=== PATIENT | female | born 1945 | race African-American/Black ===

== ENCOUNTER 2016-12-13 17:04 | Inpatient (IN) | payer MEDICARE, MEDICAID ==
[~2016-12-13] VITALS: Ht 165.1 cm; Wt 64.9 kg
[~2016-12-13 17:04] MED LIST: ALBU90AE IH; ASPI-1159 PO; ATOR10TA PO; BECL8.7A6 IH; COR3 PO; FOLI-43 PO; FURO20TA4 PO; LOSA25TA3 PO; TRAV2.5D LEFTEYE
[2016-12-13 20:08] LABS: BASOPHILS % 0.8 % (0.0-2.0); EOSINOPHILS % 2.6 % (0.0-5.0); HEMATOCRIT. 33.3 % (36.0-48.0); HEMOGLOBIN. 10.9 g/dL (12.0-16.0); LYMPHOCYTES % 30.4 % (20.0-50.0); MEAN CORPUSCULAR HEMOGLOBIN 27.8 pg (28.0-32.0); MEAN CORPUSCULAR VOLUME 84.9 fL (81.0-99.0); MEAN PLATELET VOLUME 10.4 fl (7.4-10.4); MONOCYTES % 11.9 % (2.0-8.0); NEUTROPHILS % 54.3 % (40.0-76.0); PLATELET 116 x1000/uL (130-400); RED BLOOD CELL COUNT 3.93 mill/uL (4.2-5.4); RED CELL DISTRIBUTION WIDTH 16.4 % (11.6-14.6)
[2016-12-13 20:15] LABS: INR 1.1; PARTIAL THROMBOPLASTIN TIME 26.9 sec (23.4-31.0); PROTHROMBIN TIME 11.4 sec (9.4-11.6)
[2016-12-13 20:24] LABS: CARBON DIOXIDE 24 mEq/L (21-32); CHLORIDE 105 mEq/L (98-107)
[2016-12-13] MEDS ORDERED: ZOLPIDEM TARTRATE 5MG TABLET PO PRN (21:00)
[2016-12-13] MEDS ORDERED: ACETAMINOPHEN 325MG TABLET PO PRN (22:15)
[2016-12-13] MEDS ORDERED: ONDANSETRON HCL 4MG/2ML VIAL IV PRN (22:15)
[2016-12-13] MEDS ORDERED: IPRATROPIUM/ALBUTEROL 0.5-3(2.5)MG/3ML NEB INH PRN (22:15)
[2016-12-13] MEDS ORDERED: FUROSEMIDE 40MG/4ML VIAL IVP SCH (22:15)
[2016-12-14 04:00] VITALS: BP 118/64
[2016-12-14] MEDS: MORPHINE SULFATE 4 MG/ML CPJ (NOT FOR IM USE) IV PRN (04:26)
[2016-12-14 04:30] VITALS: BP 112/64
[2016-12-14] MEDS: OMEPRAZOLE 20MG CAPSULE EXTENDED RELEASE PO SCH (06:11)
[2016-12-14 07:13] LABS: CLARITY URINE CLOUDY (CLEAR); COLOR URINE YELLOW (YELLOW); GLUCOSE URINE NEGATIVE (NEGATIVE); KETONES URINE NEGATIVE (NEGATIVE); LEUKOCYTE ESTERASE URINE 2+ (NEGATIVE); NITRITE URINE NEGATIVE (NEGATIVE); OCCULT BLOOD URINE 1+ (NEGATIVE); PH URINE 5.5 (4.5-8.0); PROTEIN URINE 1+ (NEGATIVE); SPECIFIC GRAVITY URINE 1.017 (1.005-1.030); UROBILINOGEN URINE 0.2 E.U./dL (0.2-1.0)
[2016-12-14 07:30] LABS: *AMPHETAMINES SCREEN URINE NEGATIVE (NEGATIVE); *BARBITURATES SCREEN URINE NEGATIVE (NEGATIVE); *BENZODIAZEPINES SCREEN URINE NEGATIVE (NEGATIVE); *COCAINE SCREEN URINE NEGATIVE (NEGATIVE); CANNABINOID URINE SCREEN NEGATIVE (NEGATIVE); METHADONE URINE SCREEN NEGATIVE (NEGATIVE); OPIATES URINE SCREEN NEGATIVE (NEGATIVE); PHENCYCLIDINE URINE SCREEN NEGATIVE (NEGATIVE)
[2016-12-14 08:00] VITALS: BP 106/75
[2016-12-14] MEDS: ASPIRIN 81MG EC TABLET PO SCH (08:54)
[2016-12-14] MEDS: ENOXAPARIN 30MG/0.3ML SYR SUBCUT SCH (08:56)
[2016-12-14] MEDS ORDERED: FUROSEMIDE 40MG/4ML VIAL IVP SCH (09:00)
[2016-12-14 09:22] LABS: BASOPHILS % 1.2 % (0.0-2.0); EOSINOPHILS % 1.1 % (0.0-5.0); HEMATOCRIT. 31.9 % (36.0-48.0); HEMOGLOBIN. 10.5 g/dL (12.0-16.0); LYMPHOCYTES % 19.4 % (20.0-50.0); MEAN CORPUSCULAR HEMOGLOBIN 28.1 pg (28.0-32.0); MEAN CORPUSCULAR VOLUME 85.2 fL (81.0-99.0); MEAN PLATELET VOLUME 10.6 fl (7.4-10.4); MONOCYTES % 10.3 % (2.0-8.0); PLATELET 112 x1000/uL (130-400); RED BLOOD CELL COUNT 3.74 mill/uL (4.2-5.4); RED CELL DISTRIBUTION WIDTH 16.3 % (11.6-14.6)
[2016-12-14 09:59] LABS: TROPONIN I 3.5 ng/mL (0.00-0.04)
[2016-12-14] MEDS: LOSARTAN POTASSIUM 25 MG TABLET PO SCH ×2 (10:45→12:24)
[2016-12-14 12:00] VITALS: BP 111/71
[2016-12-14] MEDS: CARVEDILOL 3.125 MG TABLET PO SCH ×2 (12:25→16:57)
[2016-12-14 16:00] VITALS: BP 99/69
[2016-12-14 20:00] VITALS: BP 105/67
[2016-12-14] MEDS: FUROSEMIDE 40MG/4ML VIAL IVP SCH (20:54)
[2016-12-14] MEDS: ATORVASTATIN CALCIUM 10MG TABLET PO SCH (20:54)
[2016-12-15] VITALS: BP 112/71
[2016-12-15 04:00] VITALS: BP 91/55
[2016-12-15] MEDS: OMEPRAZOLE 20MG CAPSULE EXTENDED RELEASE PO SCH (06:18)
[2016-12-15 07:09] LABS: BASOPHILS % 0.9 % (0.0-2.0); EOSINOPHILS % 3.7 % (0.0-5.0); HEMATOCRIT. 32.2 % (36.0-48.0); HEMOGLOBIN. 10.8 g/dL (12.0-16.0); MEAN CORPUSCULAR HEMOGLOBIN 28.3 pg (28.0-32.0); MEAN CORPUSCULAR VOLUME 84.4 fL (81.0-99.0); MEAN PLATELET VOLUME 10.7 fl (7.4-10.4); MONOCYTES % 13.1 % (2.0-8.0); NEUTROPHILS % 55.3 % (40.0-76.0); PLATELET 111 x1000/uL (130-400); RED BLOOD CELL COUNT 3.82 mill/uL (4.2-5.4); RED CELL DISTRIBUTION WIDTH 16.3 % (11.6-14.6)
[2016-12-15 08:00] VITALS: BP 112/61
[2016-12-15 08:24] LABS: PHOSPHORUS 2.8 mg/dL (2.5-4.9)
[2016-12-15] MEDS: FOLIC ACID 1MG TABLET PO SCH (08:28)
[2016-12-15] MEDS: FUROSEMIDE 40MG/4ML VIAL IVP SCH ×2 (08:28→21:49)
[2016-12-15] MEDS: ENOXAPARIN 30MG/0.3ML SYR SUBCUT SCH (08:29)
[2016-12-15] MEDS: CARVEDILOL 3.125 MG TABLET PO SCH ×2 (08:29→17:00)
[2016-12-15] MEDS: ASPIRIN 81MG EC TABLET PO SCH (08:29)
[2016-12-15] MEDS: LOSARTAN POTASSIUM 25 MG TABLET PO SCH (08:30)
[2016-12-15 12:00] VITALS: BP 102/66
[2016-12-15 16:00] VITALS: BP 106/67
[2016-12-15 20:00] VITALS: BP 103/72
[2016-12-15] MEDS: ATORVASTATIN CALCIUM 10MG TABLET PO SCH (21:49)
[2016-12-16] VITALS: BP 104/71
[2016-12-16] MEDS: MORPHINE SULFATE 4 MG/ML CPJ (NOT FOR IM USE) IV PRN (02:03)
[2016-12-16 04:00] VITALS: BP 100/64
[2016-12-16] MEDS: OMEPRAZOLE 20MG CAPSULE EXTENDED RELEASE PO SCH (06:38)
[2016-12-16 07:49] LABS: BASOPHILS % 0.9 % (0.0-2.0); EOSINOPHILS % 3.2 % (0.0-5.0); HEMATOCRIT. 31.2 % (36.0-48.0); HEMOGLOBIN. 10.4 g/dL (12.0-16.0); LYMPHOCYTES % 25.2 % (20.0-50.0); MEAN CORPUSCULAR HEMOGLOBIN 28.4 pg (28.0-32.0); MEAN CORPUSCULAR VOLUME 85.1 fL (81.0-99.0); MEAN PLATELET VOLUME 11.2 fl (7.4-10.4); MONOCYTES % 13.7 % (2.0-8.0); PLATELET 113 x1000/uL (130-400); RED BLOOD CELL COUNT 3.67 mill/uL (4.2-5.4); RED CELL DISTRIBUTION WIDTH 15.9 % (11.6-14.6)
[2016-12-16 07:58] LABS: PHOSPHORUS 2.8 mg/dL (2.5-4.9)
[2016-12-16 08:00] VITALS: BP 123/102
[2016-12-16] MEDS: FOLIC ACID 1MG TABLET PO SCH (08:34)
[2016-12-16] MEDS: LOSARTAN POTASSIUM 25 MG TABLET PO SCH ×2 (08:35→08:53)
[2016-12-16] MEDS: ASPIRIN 81MG EC TABLET PO SCH (08:35)
[2016-12-16] MEDS: CARVEDILOL 3.125 MG TABLET PO SCH ×2 (08:35→08:53)
[2016-12-16] MEDS: DOCUSATE SODIUM 100MG CAPSULE PO PRN (08:35)
[2016-12-16] MEDS: ENOXAPARIN 30MG/0.3ML SYR SUBCUT SCH (08:36)
[2016-12-16] MEDS: FUROSEMIDE 100MG/10ML VIAL IVP SCH ×3 (08:52→20:43)
[2016-12-16 12:00] VITALS: BP 98/74
[2016-12-16] MEDS: POTASSIUM CHLORIDE 20MEQ TABLET SR PO SCH (14:56)
[2016-12-16 16:00] VITALS: BP 110/71
[2016-12-16] MEDS ORDERED: LACTULOSE 20G/30ML UDC PO PRN (18:13)
[2016-12-16 20:00] VITALS: BP 93/66
[2016-12-16] MEDS: ATORVASTATIN CALCIUM 10MG TABLET PO SCH (20:44)
[2016-12-17] VITALS: BP 92/66
[2016-12-17 04:27] VITALS: BP 104/72
[2016-12-17 06:37] LABS: BASOPHILS % 1.4 % (0.0-2.0); EOSINOPHILS % 2.5 % (0.0-5.0); HEMATOCRIT. 32.9 % (36.0-48.0); LYMPHOCYTES % 26.9 % (20.0-50.0); MEAN CORPUSCULAR HEMOGLOBIN 28.2 pg (28.0-32.0); MEAN CORPUSCULAR VOLUME 84.2 fL (81.0-99.0); MEAN PLATELET VOLUME 10.7 fl (7.4-10.4); NEUTROPHILS % 56.2 % (40.0-76.0); PLATELET 122 x1000/uL (130-400); RED BLOOD CELL COUNT 3.91 mill/uL (4.2-5.4); RED CELL DISTRIBUTION WIDTH 15.7 % (11.6-14.6)
[2016-12-17 07:20] LABS: PHOSPHORUS 2.9 mg/dL (2.5-4.9)
[2016-12-17 08:00] VITALS: BP 96/63
[2016-12-17] MEDS: CARVEDILOL 3.125 MG TABLET PO SCH (08:48)
[2016-12-17] MEDS: ASPIRIN 81MG EC TABLET PO SCH (08:48)
[2016-12-17] MEDS: FOLIC ACID 1MG TABLET PO SCH (08:48)
[2016-12-17] MEDS: DOCUSATE SODIUM 100MG CAPSULE PO PRN (08:48)
[2016-12-17] MEDS: LOSARTAN POTASSIUM 25 MG TABLET PO SCH (08:48)
[2016-12-17] MEDS: FUROSEMIDE 100MG/10ML VIAL IVP SCH (08:48)
[2016-12-17] MEDS: POTASSIUM CHLORIDE 20MEQ TABLET SR PO SCH (08:49)
[2016-12-17] MEDS: ENOXAPARIN 30MG/0.3ML SYR SUBCUT SCH (08:50)
[2016-12-17] MEDS ORDERED: FAMOTIDINE 20MG TABLET PO SCH (09:00)
[2016-12-17 12:00] VITALS: BP 91/59
[2016-12-17 16:00] VITALS: BP 89/63
[2016-12-17 17:19] VITALS: BP 91/75
[2016-12-17] MEDS ORDERED: FUROSEMIDE 40MG TABLET PO SCH ×2 (21:00)
== END 2016-12-17 19:00 | disposition home or self-care (01) | DRG 291 ==
LOC: ER 17:04 → SUPCPDRO 20:51 → 5WST 23:53 → ENRESERV 12-14 02:21
PROVIDERS: ADMIT Family Medicine Adult Medicine; ATTEND Family Medicine Adult Medicine
DX: I50.23 Acute on chronic systolic (congestive) heart failure (principal); J96.91 Respiratory failure, unspecified with hypoxia; N18.4 Chronic kidney disease, stage 4 (severe); N17.9 Acute kidney failure, unspecified; I27.2 Other secondary pulmonary hypertension; D47.2 Monoclonal gammopathy; I42.0 Dilated cardiomyopathy; I13.0 Hypertensive heart and chronic kidney disease with heart failure and stage 1 through stage 4 chronic kidney disease, or unspecified chronic kidney disease; N39.0 Urinary tract infection, site not specified; E83.52 Hypercalcemia; D63.8 Anemia in other chronic diseases classified elsewhere; I25.10 Atherosclerotic heart disease of native coronary artery without angina pectoris; I34.0 Nonrheumatic mitral (valve) insufficiency; Z96.659 Presence of unspecified artificial knee joint; J45.909 Unspecified asthma, uncomplicated; Z82.49 Family history of ischemic heart disease and other diseases of the circulatory system; Z95.810 Presence of automatic (implantable) cardiac defibrillator; Z79.82 Long term (current) use of aspirin; Z79.899 Other long term (current) drug therapy
CPT/HCPCS: 36415; 71010; 80048; 80053; 80061; 80076; 80305; 81001; 82330; 82570; 83690; 83735; 83880; 83970; 84100; 84156; 84443; 84484; 84540; 85025; 85610; 85730; 93005; 93306; 93970; 96374; 99285; J1650; J1940; J2270

== ENCOUNTER 2016-12-26 08:41 | Inpatient (IN) | payer MEDICARE, MEDICAID ==
[~2016-12-26] VITALS: Ht 160 cm; Wt 59.0 kg
[~2016-12-26 08:41] MED LIST changes: -ALBU90AE IH; -BECL8.7A6 IH; -TRAV2.5D LEFTEYE
[2016-12-26] MEDS ORDERED: NITROGLYCERIN OINT 1GM/INCH UDPKT TD ONE (10:00)
[2016-12-26 10:23] LABS: CLARITY URINE CLEAR (CLEAR); COLOR URINE YELLOW (YELLOW); GLUCOSE URINE NEGATIVE (NEGATIVE); KETONES URINE NEGATIVE (NEGATIVE); LEUKOCYTE ESTERASE URINE 1+ (NEGATIVE); NITRITE URINE NEGATIVE (NEGATIVE); OCCULT BLOOD URINE 1+ (NEGATIVE); PH URINE 6.5 (4.5-8.0); PROTEIN URINE 1+ (NEGATIVE); SPECIFIC GRAVITY URINE 1.017 (1.005-1.030); UROBILINOGEN URINE 0.2 E.U./dL (0.2-1.0)
[2016-12-26 10:39] LABS: BASOPHILS % 0.9 % (0.0-2.0); HEMATOCRIT. 33.4 % (36.0-48.0); HEMOGLOBIN. 10.9 g/dL (12.0-16.0); LYMPHOCYTES % 23.8 % (20.0-50.0); MEAN CORPUSCULAR HEMOGLOBIN 27.8 pg (28.0-32.0); MEAN CORPUSCULAR VOLUME 85.4 fL (81.0-99.0); MEAN PLATELET VOLUME 10.8 fl (7.4-10.4); MONOCYTES % 9.9 % (2.0-8.0); NEUTROPHILS % 63.4 % (40.0-76.0); PLATELET 115 x1000/uL (130-400); RED BLOOD CELL COUNT 3.92 mill/uL (4.2-5.4)
[2016-12-26] MEDS ORDERED: FUROSEMIDE 40MG/4ML VIAL IVP ONE (10:45)
[2016-12-26 10:50] LABS: INR 1.1; PARTIAL THROMBOPLASTIN TIME 26.6 sec (23.4-31.0); PROTHROMBIN TIME 11.5 sec (9.4-11.6)
[2016-12-26 11:00] LABS: CARBON DIOXIDE 25 mEq/L (21-32); CHLORIDE 105 mEq/L (98-107)
[2016-12-26] MEDS ORDERED: NA PHOS,M-B/NA PHOS,DI-BA ENEMA 118ML PR PRN (12:15)
[2016-12-26] MEDS ORDERED: CLONIDINE 0.1MG TABLET PO PRN (12:15)
[2016-12-26] MEDS ORDERED: MAGNESIUM/ALUMINUM HYDROXIDE/SIMETHICONE 30ML UDC PO PRN (12:15)
[2016-12-26] MEDS ORDERED: DIPHENHYDRAMINE 50MG/ML VIAL IV PRN (12:15)
[2016-12-26] MEDS ORDERED: DOCUSATE SODIUM 100MG CAPSULE PO PRN (12:15)
[2016-12-26] MEDS ORDERED: LORAZEPAM 2MG/ML CPJ IV PRN (12:15)
[2016-12-26] MEDS ORDERED: GUAIFENESIN 200MG/10ML SUGAR FREE UDC PO PRN (12:15)
[2016-12-26] MEDS ORDERED: IPRATROPIUM/ALBUTEROL 0.5-3(2.5)MG/3ML NEB INH PRN (12:15)
[2016-12-26] MEDS ORDERED: ONDANSETRON HCL 4MG/2ML VIAL IV PRN (12:15)
[2016-12-26] MEDS ORDERED: NITROGLYCERIN 0.4MG TABLET SL SL PRN (12:15)
[2016-12-26] MEDS ORDERED: MORPHINE SULFATE 4 MG/ML CPJ (NOT FOR IM USE) IV PRN (12:15)
[2016-12-26] MEDS ORDERED: TRAMADOL 50MG TABLET PO PRN (12:15)
[2016-12-26 14:34] LABS: CREATINE KINASE 48 IU/L (26-192); CREATINE KINASE MB FRACTION < 0.5 ng/mL (0.5-3.6)
[2016-12-26] MEDS ORDERED: ZOLPIDEM TARTRATE 5MG TABLET PO PRN (20:30)
[2016-12-26 21:00] VITALS: BP 103/73
[2016-12-27 00:06] LABS: TROPONIN I 2.7 ng/mL (0.00-0.04)
[2016-12-27] MEDS: CEFTRIAXONE 1 G PREMIX 50 ML IV SCH ×2 (01:29→21:45)
[2016-12-27] MEDS: SILDENAFIL CITRATE 20MG TABLET PO SCH ×4 (01:29→22:00)
[2016-12-27] MEDS: FAMOTIDINE 20MG/2ML VIAL IV SCH ×3 (01:30→21:45)
[2016-12-27] MEDS: SPIRONOLACTONE 25MG TABLET PO SCH ×3 (01:30→21:00)
[2016-12-27] MEDS: FUROSEMIDE 40MG/4ML VIAL IVP SCH ×3 (01:30→21:57)
[2016-12-27] MEDS: ENOXAPARIN 30MG/0.3ML SYR SUBCUT SCH ×2 (01:32→21:46)
[2016-12-27 04:00] VITALS: BP 94/59
[2016-12-27] MEDS: ACETAMINOPHEN 325MG TABLET PO PRN (06:18)
[2016-12-27 08:00] VITALS: BP 98/67
[2016-12-27] MEDS ORDERED: ASPIRIN 325MG EC TABLET PO SCH (09:00)
[2016-12-27] MEDS ORDERED: CEFTRIAXONE 1 G PREMIX 50 ML IV SCH (09:00)
[2016-12-27] MEDS: LOSARTAN POTASSIUM 25 MG TABLET PO SCH (11:30)
[2016-12-27 12:00] VITALS: BP 98/66
[2016-12-27 16:00] VITALS: BP 96/66
[2016-12-27 20:00] VITALS: BP 106/70
[2016-12-27] MEDS: CARVEDILOL 3.125 MG TABLET PO SCH (21:00)
[2016-12-28] VITALS: BP 101/67
[2016-12-28 04:00] VITALS: BP 111/77
[2016-12-28] MEDS: SILDENAFIL CITRATE 20MG TABLET PO SCH ×3 (06:02→21:03)
[2016-12-28 07:03] LABS: BASOPHILS % 1.3 % (0.0-2.0); EOSINOPHILS % 3.8 % (0.0-5.0); HEMATOCRIT. 34.1 % (36.0-48.0); HEMOGLOBIN. 11.3 g/dL (12.0-16.0); LYMPHOCYTES % 25.1 % (20.0-50.0); MEAN CORPUSCULAR HEMOGLOBIN 28.2 pg (28.0-32.0); MEAN CORPUSCULAR VOLUME 85.3 fL (81.0-99.0); MEAN PLATELET VOLUME 11.7 fl (7.4-10.4); MONOCYTES % 11.4 % (2.0-8.0); NEUTROPHILS % 58.4 % (40.0-76.0); PLATELET 122 x1000/uL (130-400); RED BLOOD CELL COUNT 3.99 mill/uL (4.2-5.4); RED CELL DISTRIBUTION WIDTH 15.7 % (11.6-14.6)
[2016-12-28] MEDS: FAMOTIDINE 20MG/2ML VIAL IV SCH ×2 (08:52→21:02)
[2016-12-28] MEDS: ASPIRIN 81MG TABLET PO SCH (08:52)
[2016-12-28] MEDS: FUROSEMIDE 40MG/4ML VIAL IVP SCH ×2 (08:52→21:02)
[2016-12-28 08:57] VITALS: BP 107/62
[2016-12-28] MEDS: SPIRONOLACTONE 25MG TABLET PO SCH ×2 (09:02→21:00)
[2016-12-28] MEDS: CARVEDILOL 3.125 MG TABLET PO SCH ×2 (09:02→21:02)
[2016-12-28] MEDS: LOSARTAN POTASSIUM 25 MG TABLET PO SCH (09:02)
[2016-12-28 12:00] VITALS: BP 87/62
[2016-12-28 16:00] VITALS: BP 89/68
[2016-12-28 20:00] VITALS: BP 103/64
[2016-12-28] MEDS: CEFTRIAXONE 1 G PREMIX 50 ML IV SCH (21:02)
[2016-12-28] MEDS: ENOXAPARIN 30MG/0.3ML SYR SUBCUT SCH (21:03)
[2016-12-28] MEDS: ACETAMINOPHEN 325MG TABLET PO PRN (21:13)
[2016-12-29] VITALS: BP 116/71
[2016-12-29 04:00] VITALS: BP 98/61
[2016-12-29] MEDS: SILDENAFIL CITRATE 20MG TABLET PO SCH ×2 (05:46→14:00)
[2016-12-29 06:05] LABS: BASOPHILS % 0.8 % (0.0-2.0); EOSINOPHILS % 4.1 % (0.0-5.0); HEMATOCRIT. 33.2 % (36.0-48.0); LYMPHOCYTES % 29.8 % (20.0-50.0); MEAN CORPUSCULAR HEMOGLOBIN 28.1 pg (28.0-32.0); MEAN CORPUSCULAR VOLUME 84.4 fL (81.0-99.0); MEAN PLATELET VOLUME 11.3 fl (7.4-10.4); MONOCYTES % 11.1 % (2.0-8.0); NEUTROPHILS % 54.2 % (40.0-76.0); PLATELET 116 x1000/uL (130-400); RED BLOOD CELL COUNT 3.93 mill/uL (4.2-5.4); RED CELL DISTRIBUTION WIDTH 15.7 % (11.6-14.6)
[2016-12-29 06:48] LABS: PHOSPHORUS 3.3 mg/dL (2.5-4.9)
[2016-12-29 08:00] VITALS: BP 103/70
[2016-12-29] MEDS: FAMOTIDINE 20MG/2ML VIAL IV SCH (09:00)
[2016-12-29] MEDS: FUROSEMIDE 40MG/4ML VIAL IVP SCH (09:01)
[2016-12-29] MEDS: ASPIRIN 81MG TABLET PO SCH (09:01)
[2016-12-29] MEDS: LOSARTAN POTASSIUM 25 MG TABLET PO SCH (09:01)
[2016-12-29] MEDS: SPIRONOLACTONE 25MG TABLET PO SCH (09:02)
[2016-12-29] MEDS: CARVEDILOL 3.125 MG TABLET PO SCH (09:02)
[2016-12-29 10:48] VITALS: BP 103/70
[2016-12-29 12:00] VITALS: BP 84/56
[2016-12-29 16:00] VITALS: BP 99/71
[2016-12-30] MEDS ORDERED: FAMOTIDINE 20MG/2ML VIAL IV SCH (09:00)
== END 2016-12-29 19:35 | disposition home or self-care (01) | DRG 280 ==
LOC: ER 10:55 → 7WST 10:56 → EDBEDREQ 10:58 → EDBEDREQTM 10:58 → SUPCPDRO 12:10 → ENRESERV 19:03 → EDBEDREQ 20:51
PROVIDERS: ADMIT Internal Medicine; ATTEND Internal Medicine
DX: I21.4 Non-ST elevation (NSTEMI) myocardial infarction (principal); I50.43 Acute on chronic combined systolic (congestive) and diastolic (congestive) heart failure; J96.91 Respiratory failure, unspecified with hypoxia; N18.4 Chronic kidney disease, stage 4 (severe); N17.9 Acute kidney failure, unspecified; E44.1 Mild protein-calorie malnutrition; I42.0 Dilated cardiomyopathy; I27.2 Other secondary pulmonary hypertension; N39.0 Urinary tract infection, site not specified; I13.0 Hypertensive heart and chronic kidney disease with heart failure and stage 1 through stage 4 chronic kidney disease, or unspecified chronic kidney disease; D47.2 Monoclonal gammopathy; D50.9 Iron deficiency anemia, unspecified; I25.10 Atherosclerotic heart disease of native coronary artery without angina pectoris; I34.0 Nonrheumatic mitral (valve) insufficiency; J45.909 Unspecified asthma, uncomplicated; Z96.659 Presence of unspecified artificial knee joint; Z82.49 Family history of ischemic heart disease and other diseases of the circulatory system; Z95.810 Presence of automatic (implantable) cardiac defibrillator; Z79.82 Long term (current) use of aspirin; Z79.899 Other long term (current) drug therapy; Z68.23 Body mass index [BMI] 23.0-23.9, adult
CPT/HCPCS: 36415; 71010; 80048; 80053; 80061; 81001; 82550; 82553; 83036; 83605; 83735; 83880; 84100; 84484; 85025; 85610; 85730; 87040; 87086; 93005; 93970; 96374; 99285; J0696; J1650; J1940; J3490

== ENCOUNTER 2017-01-17 06:48 | Inpatient (IN) | payer MEDICARE, MEDICAID ==
[~2017-01-17] VITALS: Ht 165.1 cm; Wt 59.0 kg
[2017-01-17 08:16] LABS: BASOPHILS % 0.8 % (0.0-2.0); EOSINOPHILS % 0.8 % (0.0-5.0); HEMATOCRIT. 34.8 % (36.0-48.0); HEMOGLOBIN. 11.4 g/dL (12.0-16.0); LYMPHOCYTES % 16.9 % (20.0-50.0); MEAN CORPUSCULAR HEMOGLOBIN 28.3 pg (28.0-32.0); MEAN CORPUSCULAR VOLUME 86.2 fL (81.0-99.0); MEAN PLATELET VOLUME 11.1 fl (7.4-10.4); NEUTROPHILS % 70.5 % (40.0-76.0); PLATELET 96 x1000/uL (130-400); RED BLOOD CELL COUNT 4.03 mill/uL (4.2-5.4); RED CELL DISTRIBUTION WIDTH 15.4 % (11.6-14.6)
[2017-01-17 08:19] LABS: INR 1.1; PROTHROMBIN TIME 11.6 sec (9.4-11.6)
[2017-01-17 08:34] LABS: CARBON DIOXIDE 26 mEq/L (21-32); CHLORIDE 105 mEq/L (98-107)
[2017-01-17 08:37] LABS: TROPONIN I 0.86 ng/mL (0.00-0.04)
[2017-01-17] MEDS ORDERED: ASPIRIN 81MG TABLET PO ONE (10:30)
[2017-01-17] MEDS ORDERED: FUROSEMIDE 40MG/4ML VIAL IV ONE (10:30)
[2017-01-17] MEDS ORDERED: ASPIRIN 81MG TABLET PO NR (11:00)
[2017-01-17 14:40] VITALS: BP 108/62
[2017-01-17] MEDS ORDERED: ACETAMINOPHEN 325MG TABLET PO PRN (15:30)
[2017-01-17] MEDS ORDERED: ONDANSETRON HCL 4MG/2ML VIAL IV PRN (15:30)
[2017-01-17] MEDS ORDERED: IPRATROPIUM/ALBUTEROL 0.5-3(2.5)MG/3ML NEB INH PRN (15:30)
[2017-01-17] MEDS ORDERED: DOCUSATE SODIUM 100MG CAPSULE PO PRN (15:30)
[2017-01-17] MEDS: FUROSEMIDE 40MG/4ML VIAL IVP SCH (17:05)
[2017-01-17 20:00] VITALS: BP 103/71
[2017-01-17] MEDS: ATORVASTATIN CALCIUM 10MG TABLET PO SCH (20:40)
[2017-01-17] MEDS: CARVEDILOL 3.125 MG TABLET PO SCH (20:41)
[2017-01-17] MEDS ORDERED: ZOLPIDEM TARTRATE 5MG TABLET PO PRN (21:00)
[2017-01-18] VITALS: BP 107/75
[2017-01-18] MEDS: IPRATROPIUM/ALBUTEROL 0.5-3(2.5)MG/3ML NEB HHN SCH ×4 (02:16→20:47)
[2017-01-18 04:00] VITALS: BP 102/67
[2017-01-18] MEDS: FUROSEMIDE 40MG/4ML VIAL IVP SCH (06:29)
[2017-01-18] MEDS: OMEPRAZOLE 20MG CAPSULE EXTENDED RELEASE PO SCH (06:29)
[2017-01-18 06:36] LABS: BASOPHILS % 1.1 % (0.0-2.0); EOSINOPHILS % 2.4 % (0.0-5.0); HEMATOCRIT. 34.2 % (36.0-48.0); HEMOGLOBIN. 11.3 g/dL (12.0-16.0); LYMPHOCYTES % 21.4 % (20.0-50.0); MEAN CORPUSCULAR HEMOGLOBIN 28.5 pg (28.0-32.0); MEAN CORPUSCULAR VOLUME 86.2 fL (81.0-99.0); MEAN PLATELET VOLUME 11.7 fl (7.4-10.4); MONOCYTES % 10.9 % (2.0-8.0); NEUTROPHILS % 64.2 % (40.0-76.0); PLATELET 96 x1000/uL (130-400); RED BLOOD CELL COUNT 3.97 mill/uL (4.2-5.4); RED CELL DISTRIBUTION WIDTH 15.3 % (11.6-14.6)
[2017-01-18 08:00] VITALS: BP 106/71
[2017-01-18] MEDS: LOSARTAN POTASSIUM 25 MG TABLET PO SCH (08:28)
[2017-01-18] MEDS: CARVEDILOL 3.125 MG TABLET PO SCH ×2 (08:28→21:48)
[2017-01-18 12:00] VITALS: BP 102/68
[2017-01-18] MEDS: POTASSIUM CHLORIDE 20MEQ TABLET SR PO SCH (12:46)
[2017-01-18 16:00] VITALS: BP 101/74
[2017-01-18] MEDS: FUROSEMIDE 100MG/10ML VIAL IVP SCH (16:24)
[2017-01-18 20:00] VITALS: BP 100/68
[2017-01-18] MEDS: ATORVASTATIN CALCIUM 10MG TABLET PO SCH (21:47)
[2017-01-19] VITALS: BP 110/63
[2017-01-19] MEDS: IPRATROPIUM/ALBUTEROL 0.5-3(2.5)MG/3ML NEB HHN SCH ×4 (01:23→20:39)
[2017-01-19 04:00] VITALS: BP 98/63
[2017-01-19] MEDS: OMEPRAZOLE 20MG CAPSULE EXTENDED RELEASE PO SCH (06:40)
[2017-01-19] MEDS: FUROSEMIDE 100MG/10ML VIAL IVP SCH (06:41)
[2017-01-19 06:44] LABS: BASOPHILS % 0.9 % (0.0-2.0); HEMATOCRIT. 33.1 % (36.0-48.0); HEMOGLOBIN. 11.1 g/dL (12.0-16.0); LYMPHOCYTES % 21.6 % (20.0-50.0); MEAN CORPUSCULAR HEMOGLOBIN 28.8 pg (28.0-32.0); MEAN CORPUSCULAR VOLUME 86.1 fL (81.0-99.0); MEAN PLATELET VOLUME 11.7 fl (7.4-10.4); MONOCYTES % 12.5 % (2.0-8.0); PLATELET 93 x1000/uL (130-400); RED BLOOD CELL COUNT 3.84 mill/uL (4.2-5.4)
[2017-01-19 07:08] LABS: PHOSPHORUS 2.3 mg/dL (2.5-4.9)
[2017-01-19 08:00] VITALS: BP 107/65
[2017-01-19] MEDS: POTASSIUM CHLORIDE 20MEQ TABLET SR PO SCH (08:04)
[2017-01-19] MEDS: LOSARTAN POTASSIUM 25 MG TABLET PO SCH (08:04)
[2017-01-19] MEDS: CARVEDILOL 3.125 MG TABLET PO SCH ×2 (08:04→20:58)
[2017-01-19] MEDS ORDERED: FUROSEMIDE 100MG/10ML VIAL IVP SCH (10:09)
[2017-01-19] MEDS ORDERED: FUROSEMIDE 40MG/4ML VIAL IVP SCH (18:00)
[2017-01-19 20:51] VITALS: BP 93/57
[2017-01-19] MEDS: ATORVASTATIN CALCIUM 10MG TABLET PO SCH (20:53)
[2017-01-20] MEDS: IPRATROPIUM/ALBUTEROL 0.5-3(2.5)MG/3ML NEB HHN SCH ×3 (01:07→14:05)
[2017-01-20 08:00] VITALS: BP 97/68
[2017-01-20 12:00] VITALS: BP 100/68
[2017-01-20] MEDS ORDERED: FUROSEMIDE 40MG/4ML VIAL IVP ONE (14:30)
[2017-01-20 15:35] LABS: PHOSPHORUS 2.4 mg/dL (2.5-4.9)
[2017-01-20 15:43] LABS: BASOPHILS % 1.3 % (0.0-2.0); EOSINOPHILS % 2.8 % (0.0-5.0); HEMATOCRIT. 36.5 % (36.0-48.0); HEMOGLOBIN. 11.9 g/dL (12.0-16.0); LYMPHOCYTES % 22.9 % (20.0-50.0); MEAN CORPUSCULAR HEMOGLOBIN 28.3 pg (28.0-32.0); MEAN PLATELET VOLUME 11.5 fl (7.4-10.4); MONOCYTES % 10.4 % (2.0-8.0); NEUTROPHILS % 62.6 % (40.0-76.0); PLATELET 111 x1000/uL (130-400); RED CELL DISTRIBUTION WIDTH 15.6 % (11.6-14.6)
[2017-01-20 16:00] VITALS: BP 101/66
[2017-01-20 18:08] VITALS: BP 101/66
== END 2017-01-20 19:25 | disposition home or self-care (01) | DRG 291 ==
LOC: ER 06:48 → 8WST 10:30 → ENRESERV 12:19
PROVIDERS: ADMIT Family Medicine Adult Medicine; ATTEND Family Medicine Adult Medicine
DX: I13.0 Hypertensive heart and chronic kidney disease with heart failure and stage 1 through stage 4 chronic kidney disease, or unspecified chronic kidney disease (principal); I50.43 Acute on chronic combined systolic (congestive) and diastolic (congestive) heart failure; J96.91 Respiratory failure, unspecified with hypoxia; D69.6 Thrombocytopenia, unspecified; I49.5 Sick sinus syndrome; J96.21 Acute and chronic respiratory failure with hypoxia; N18.4 Chronic kidney disease, stage 4 (severe); I27.20 Pulmonary hypertension, unspecified; I42.0 Dilated cardiomyopathy; E44.1 Mild protein-calorie malnutrition; D47.2 Monoclonal gammopathy; Z95.810 Presence of automatic (implantable) cardiac defibrillator; D50.9 Iron deficiency anemia, unspecified; Z96.659 Presence of unspecified artificial knee joint; J45.909 Unspecified asthma, uncomplicated; I34.0 Nonrheumatic mitral (valve) insufficiency; I25.10 Atherosclerotic heart disease of native coronary artery without angina pectoris; I25.2 Old myocardial infarction; Z82.49 Family history of ischemic heart disease and other diseases of the circulatory system; Z79.899 Other long term (current) drug therapy; Z79.82 Long term (current) use of aspirin; Z68.21 Body mass index [BMI] 21.0-21.9, adult
CPT/HCPCS: 36415; 71010; 80048; 80053; 83735; 83880; 84100; 84484; 85025; 85610; 93005; 93970; 94640; 94664; 96374; 97161; 99291; J1940; J7620

== ENCOUNTER 2017-03-17 12:45 | Inpatient (IN) | payer MEDICARE, MEDICAID ==
[~2017-03-17] VITALS: Ht 160 cm; Wt 62.6 kg
[~2017-03-17 12:45] MED LIST changes: -ASPI-1159 PO; -ATOR10TA PO; -FOLI-43 PO; -FURO20TA4 PO
[2017-03-17] MEDS ORDERED: NITROGLYCERIN OINT 1GM/INCH UDPKT TD STA (13:17)
[2017-03-17] MEDS ORDERED: FUROSEMIDE 40MG/4ML VIAL IV STA (13:17)
[2017-03-17 14:28] LABS: EOSINOPHILS % 0.5 % (0.0-5.0); HEMATOCRIT. 38.9 % (36.0-48.0); HEMOGLOBIN. 12.7 g/dL (12.0-16.0); LYMPHOCYTES % 18.5 % (20.0-50.0); MEAN CORPUSCULAR HEMOGLOBIN 28.1 pg (28.0-32.0); MEAN CORPUSCULAR VOLUME 85.9 fL (81.0-99.0); MEAN PLATELET VOLUME 10.5 fl (7.4-10.4); MONOCYTES % 12.2 % (2.0-8.0); NEUTROPHILS % 67.8 % (40.0-76.0); PLATELET 118 x1000/uL (130-400); RED BLOOD CELL COUNT 4.53 mill/uL (4.2-5.4); RED CELL DISTRIBUTION WIDTH 16.5 % (11.6-14.6)
[2017-03-17 14:32] LABS: INR 1.2; PROTHROMBIN TIME 12.8 sec (9.4-11.6)
[2017-03-17 14:49] LABS: CARBON DIOXIDE 28 mEq/L (21-32); CHLORIDE 92 mEq/L (98-107)
[2017-03-17 14:57] LABS: TROPONIN I 0.59 ng/mL (0.00-0.04)
[2017-03-17] MEDS ORDERED: ASPIRIN 325MG TABLET PO NR (15:30)
[2017-03-17] MEDS ORDERED: DIPHENHYDRAMINE 50MG/ML VIAL IV PRN (16:30)
[2017-03-17] MEDS ORDERED: CLONIDINE 0.1MG TABLET PO PRN (16:30)
[2017-03-17] MEDS ORDERED: GUAIFENESIN 200MG/10ML SUGAR FREE UDC PO PRN (16:30)
[2017-03-17] MEDS ORDERED: TRAMADOL 50MG TABLET PO PRN (16:30)
[2017-03-17] MEDS ORDERED: LORAZEPAM 0.5MG TABLET PO PRN (16:30)
[2017-03-17] MEDS ORDERED: NITROGLYCERIN 0.4MG TABLET SL SL PRN (16:30)
[2017-03-17] MEDS ORDERED: MORPHINE SULFATE 2 MG/ML CPJ (NOT FOR IM USE) IV PRN (16:30)
[2017-03-17] MEDS ORDERED: ACETAMINOPHEN 325MG TABLET PO PRN (16:30)
[2017-03-17] MEDS ORDERED: NA PHOS,M-B/NA PHOS,DI-BA ENEMA 118ML PR PRN (16:30)
[2017-03-17] MEDS ORDERED: MAGNESIUM/ALUMINUM HYDROXIDE/SIMETHICONE 30ML UDC PO PRN (16:30)
[2017-03-17] MEDS ORDERED: ONDANSETRON HCL 4MG/2ML VIAL IV PRN (16:30)
[2017-03-17] MEDS ORDERED: CARVEDILOL 3.125 MG TABLET PO SCH (17:00)
[2017-03-17] MEDS ORDERED: FUROSEMIDE 40MG/4ML VIAL IVP SCH ×2 (17:00→21:00)
[2017-03-17 18:00] VITALS: BP 110/77
[2017-03-17] MEDS ORDERED: POTASSIUM CHLORIDE 20MEQ TABLET SR PO NR (18:15)
[2017-03-17 20:00] VITALS: BP 99/65
[2017-03-17] MEDS: SPIRONOLACTONE 25MG TABLET PO SCH (21:00)
[2017-03-17] MEDS: FAMOTIDINE 20MG/2ML VIAL IV SCH (21:58)
[2017-03-17] MEDS: ENOXAPARIN 30MG/0.3ML SYR SUBCUT SCH (21:58)
[2017-03-17] MEDS: GUAIFENESIN/DM 600MG/30MG ER TAB 12HR PO SCH (21:59)
[2017-03-17] MEDS: FUROSEMIDE 100MG/10ML VIAL IVP SCH (21:59)
[2017-03-17] MEDS: CEFTRIAXONE 1 G PREMIX 50 ML IV SCH (21:59)
[2017-03-17] MEDS ORDERED: LEVOFLOXACIN 500MG PREMIX 100 ML IV NR (22:00)
[2017-03-18] VITALS: BP 102/67
[2017-03-18] MEDS: ZOLPIDEM TARTRATE 5MG TABLET PO PRN ×2 (00:16→21:51)
[2017-03-18 00:57] LABS: CREATINE KINASE MB FRACTION 0.7 ng/mL (0.5-3.6)
[2017-03-18 04:00] VITALS: BP 114/67
[2017-03-18] MEDS: FUROSEMIDE 100MG/10ML VIAL IVP SCH ×2 (06:23→17:24)
[2017-03-18] MEDS: CARVEDILOL 3.125 MG TABLET PO SCH ×2 (06:30→17:24)
[2017-03-18 07:29] LABS: HEMATOCRIT. 36.2 % (36.0-48.0); HEMOGLOBIN. 11.8 g/dL (12.0-16.0); MEAN CORPUSCULAR HEMOGLOBIN 27.9 pg (28.0-32.0); MEAN CORPUSCULAR VOLUME 85.4 fL (81.0-99.0); MEAN PLATELET VOLUME 10.9 fl (7.4-10.4); PLATELET 115 x1000/uL (130-400); RED BLOOD CELL COUNT 4.23 mill/uL (4.2-5.4); RED CELL DISTRIBUTION WIDTH 16.9 % (11.6-14.6)
[2017-03-18 08:00] VITALS: BP 105/73
[2017-03-18] MEDS: AMLODIPINE 2.5MG TABLET PO SCH (08:24)
[2017-03-18] MEDS: ASPIRIN 325MG EC TABLET PO SCH (08:31)
[2017-03-18] MEDS: GUAIFENESIN/DM 600MG/30MG ER TAB 12HR PO SCH ×2 (08:31→21:13)
[2017-03-18] MEDS: FOLIC ACID/VITAMIN B COMP W-C TABLET PO SCH (08:31)
[2017-03-18] MEDS: DOCUSATE SODIUM 100MG CAPSULE PO PRN (08:31)
[2017-03-18] MEDS: SPIRONOLACTONE 25MG TABLET PO SCH ×3 (08:32→21:14)
[2017-03-18] MEDS ORDERED: METOLAZONE 2.5MG TABLET PO SCH (09:00)
[2017-03-18 09:31] LABS: CREATINE KINASE MB FRACTION 0.9 ng/mL (0.5-3.6)
[2017-03-18 10:02] LABS: TROPONIN I 0.56 ng/mL (0.00-0.04)
[2017-03-18] MEDS ORDERED: POTASSIUM CHLORIDE 20MEQ/PACKET PO NR (10:30)
[2017-03-18 10:32] LABS: PLATELET ESTIMATE DECREASED
[2017-03-18] MEDS ORDERED: POTASSIUM CHLORIDE IV NR ×3 (11:00→12:30)
[2017-03-18] MEDS ORDERED: SODIUM CHLORIDE 0.9% IV NR ×3 (11:00→12:30)
[2017-03-18] MEDS: IPRATROPIUM/ALBUTEROL 0.5-3(2.5)MG/3ML NEB INH PRN ×3 (11:29→23:53)
[2017-03-18] MEDS ORDERED: KCL 20MEQ/100ML PREMIX 100 ML IV NR (11:30)
[2017-03-18 12:00] VITALS: BP 96/74
[2017-03-18] MEDS: SILDENAFIL CITRATE 20MG TABLET PO SCH ×2 (14:01→21:13)
[2017-03-18] MEDS ORDERED: POTASSIUM CHLORIDE 20MEQ TABLET SR PO NR (14:45)
[2017-03-18 16:00] VITALS: BP_SYST 147; BP_SYST 99; BP_DIAS 51; BP_DIAS 70
[2017-03-18 20:00] VITALS: BP 92/63
[2017-03-18] MEDS: ENOXAPARIN 30MG/0.3ML SYR SUBCUT SCH (21:08)
[2017-03-18] MEDS: FAMOTIDINE 20MG/2ML VIAL IV SCH (21:52)
[2017-03-18] MEDS: CEFTRIAXONE 1 G PREMIX 50 ML IV SCH (22:43)
[2017-03-19] VITALS: BP 97/74
[2017-03-19] MEDS: IPRATROPIUM/ALBUTEROL 0.5-3(2.5)MG/3ML NEB INH PRN ×5 (02:46→20:21)
[2017-03-19 04:00] VITALS: BP 99/77
[2017-03-19] MEDS: CARVEDILOL 3.125 MG TABLET PO SCH ×2 (06:00→17:03)
[2017-03-19] MEDS: SILDENAFIL CITRATE 20MG TABLET PO SCH ×3 (06:21→21:35)
[2017-03-19] MEDS: FUROSEMIDE 100MG/10ML VIAL IVP SCH ×2 (06:21→17:03)
[2017-03-19 08:00] VITALS: BP 101/64
[2017-03-19] MEDS: ASPIRIN 325MG EC TABLET PO SCH (08:11)
[2017-03-19] MEDS: FOLIC ACID/VITAMIN B COMP W-C TABLET PO SCH (08:11)
[2017-03-19] MEDS: GUAIFENESIN/DM 600MG/30MG ER TAB 12HR PO SCH ×2 (08:11→21:00)
[2017-03-19] MEDS: SPIRONOLACTONE 25MG TABLET PO SCH ×2 (08:14→21:34)
[2017-03-19] MEDS: AMLODIPINE 2.5MG TABLET PO SCH (08:15)
[2017-03-19 08:22] LABS: BASOPHILS % 0.9 % (0.0-2.0); EOSINOPHILS % 0.5 % (0.0-5.0); HEMOGLOBIN. 11.8 g/dL (12.0-16.0); LYMPHOCYTES % 12.2 % (20.0-50.0); MEAN CORPUSCULAR VOLUME 85.4 fL (81.0-99.0); MONOCYTES % 10.5 % (2.0-8.0); NEUTROPHILS % 75.9 % (40.0-76.0); PLATELET 128 x1000/uL (130-400); RED BLOOD CELL COUNT 4.21 mill/uL (4.2-5.4); RED CELL DISTRIBUTION WIDTH 16.5 % (11.6-14.6)
[2017-03-19 08:31] LABS: PHOSPHORUS 2.5 mg/dL (2.5-4.9)
[2017-03-19 08:59] LABS: TROPONIN I 0.54 ng/mL (0.00-0.04)
[2017-03-19 12:00] VITALS: BP 106/71
[2017-03-19] MEDS ORDERED: METOLAZONE 10MG TABLET PO NR (12:00)
[2017-03-19] MEDS ORDERED: POTASSIUM CHLORIDE 20MEQ TABLET SR PO SCH (12:30)
[2017-03-19 16:25] VITALS: BP 118/74
[2017-03-19 20:00] VITALS: BP 93/66
[2017-03-19] MEDS ORDERED: LEVOFLOXACIN 250MG PREMIX 50 ML IV SCH (20:00)
[2017-03-19] MEDS: FAMOTIDINE 20MG/2ML VIAL IV SCH (21:35)
[2017-03-19] MEDS: ENOXAPARIN 30MG/0.3ML SYR SUBCUT SCH (21:36)
[2017-03-19] MEDS ORDERED: CEFTRIAXONE 1 G PREMIX 50 ML IV SCH (23:30)
[2017-03-20] MEDS: IPRATROPIUM/ALBUTEROL 0.5-3(2.5)MG/3ML NEB INH PRN ×3 (00:45→08:29)
[2017-03-20 01:18] VITALS: BP 94/55
[2017-03-20 03:52] VITALS: BP 97/64
[2017-03-20 05:45] LABS: HEMATOCRIT. 35.9 % (36.0-48.0); LYMPHOCYTES % 12.8 % (20.0-50.0); MEAN CORPUSCULAR HEMOGLOBIN 28.9 pg (28.0-32.0); MEAN CORPUSCULAR VOLUME 86.6 fL (81.0-99.0); MEAN PLATELET VOLUME 10.8 fl (7.4-10.4); MONOCYTES % 11.2 % (2.0-8.0); PLATELET 123 x1000/uL (130-400); RED BLOOD CELL COUNT 4.15 mill/uL (4.2-5.4); RED CELL DISTRIBUTION WIDTH 16.9 % (11.6-14.6)
[2017-03-20] MEDS: CARVEDILOL 3.125 MG TABLET PO SCH ×2 (06:00→18:29)
[2017-03-20] MEDS: SILDENAFIL CITRATE 20MG TABLET PO SCH ×3 (06:51→21:56)
[2017-03-20] MEDS: FUROSEMIDE 100MG/10ML VIAL IVP SCH ×2 (06:51→16:28)
[2017-03-20 08:00] VITALS: BP 110/72
[2017-03-20 08:17] LABS: TROPONIN I 0.52 ng/mL (0.00-0.04)
[2017-03-20] MEDS: AMLODIPINE 2.5MG TABLET PO SCH (09:00)
[2017-03-20] MEDS ORDERED: POTASSIUM CHLORIDE 20MEQ/PACKET PO NR ×2 (10:00→14:15)
[2017-03-20] MEDS: FOLIC ACID/VITAMIN B COMP W-C TABLET PO SCH (10:13)
[2017-03-20] MEDS: SPIRONOLACTONE 25MG TABLET PO SCH ×2 (10:13→20:05)
[2017-03-20] MEDS: ASPIRIN 325MG EC TABLET PO SCH (10:14)
[2017-03-20] MEDS: GUAIFENESIN/DM 600MG/30MG ER TAB 12HR PO SCH ×2 (10:14→20:09)
[2017-03-20 12:00] VITALS: BP 100/70
[2017-03-20] MEDS: DOCUSATE SODIUM 100MG CAPSULE PO PRN (14:33)
[2017-03-20 15:20] VITALS: BP 100/70
[2017-03-20 16:00] VITALS: BP 100/67
[2017-03-20] MEDS: FAMOTIDINE 20MG/2ML VIAL IV SCH (20:05)
[2017-03-20] MEDS: ENOXAPARIN 30MG/0.3ML SYR SUBCUT SCH (20:13)
[2017-03-20] MEDS ORDERED: CEFTRIAXONE 1,000 MG in DEXTROSE 5% WATER 50 ML IV SCH (23:30)
== END 2017-03-20 22:35 | disposition home or self-care (01) | DRG 280 ==
LOC: ER 12:55 → ENRESERV 15:35 → 8WST 15:45 → EDBEDREQ 15:48 → EDBEDREQTM 15:48 → SUPCPDRO 16:14
PROVIDERS: ADMIT Internal Medicine; ATTEND Internal Medicine
DX: I21.4 Non-ST elevation (NSTEMI) myocardial infarction (principal); I50.43 Acute on chronic combined systolic (congestive) and diastolic (congestive) heart failure; J96.91 Respiratory failure, unspecified with hypoxia; N17.0 Acute kidney failure with tubular necrosis; D69.6 Thrombocytopenia, unspecified; N18.4 Chronic kidney disease, stage 4 (severe); D47.2 Monoclonal gammopathy; E11.22 Type 2 diabetes mellitus with diabetic chronic kidney disease; I49.5 Sick sinus syndrome; E87.1 Hypo-osmolality and hyponatremia; I31.3 Pericardial effusion (noninflammatory); I13.0 Hypertensive heart and chronic kidney disease with heart failure and stage 1 through stage 4 chronic kidney disease, or unspecified chronic kidney disease; I42.0 Dilated cardiomyopathy; E87.6 Hypokalemia; D63.8 Anemia in other chronic diseases classified elsewhere; I34.0 Nonrheumatic mitral (valve) insufficiency; E78.5 Hyperlipidemia, unspecified; I25.10 Atherosclerotic heart disease of native coronary artery without angina pectoris; I27.20 Pulmonary hypertension, unspecified; R31.0 Gross hematuria; Z96.659 Presence of unspecified artificial knee joint; Z82.49 Family history of ischemic heart disease and other diseases of the circulatory system; Z79.899 Other long term (current) drug therapy; Z95.810 Presence of automatic (implantable) cardiac defibrillator
CPT/HCPCS: 36415; 71010; 80048; 80053; 80061; 82550; 82553; 83036; 83605; 83690; 83735; 83880; 84100; 84484; 85025; 85610; 87040; 87086; 93005; 93306; 93970; 94640; 94664; 96374; 99291; C1893; J0696; J1200; J1650; J1940; J1956; J3480; J3490; J7040; J7050; J7060; J7620; A4315